=== PATIENT | male | born 1980 | race Caucasian/White ===

== ENCOUNTER 2019-04-18 22:21 | Emergency (ER) | payer OTHER ==
[~2019-04-18] VITALS: Ht 177.8 cm; Wt 90.9 kg
[~2019-04-18 22:21] MED LIST: CYCL-1 PO; NO MEDICATIONS
[2019-04-18 22:28] VITALS: BP 131/85
[2019-04-18] MEDS ORDERED: gentamicin 0.1% topical ointment 15gm TP ONE (23:30)
[2019-04-18] MEDS ORDERED: LIDOcaine 4% (40 mg/ml) topical solution 50ml MM ONE (23:30)
[2019-04-18] MEDS ORDERED: gentamicin 0.1% topical ointment 15gm TP SCH (23:30)
[2019-04-18] MEDS ORDERED: LIDOcaine 40mg/ml topical solution MM ONE (23:30)
== END 2019-04-19 00:38 | disposition home or self-care (01) ==
LOC: ER 22:22
DX: T81.31XA Disruption of external operation (surgical) wound, not elsewhere classified, initial encounter (principal); Z87.891 Personal history of nicotine dependence; Z98.890 Other specified postprocedural states; Z79.899 Other long term (current) drug therapy; Y83.8 Other surgical procedures as the cause of abnormal reaction of the patient, or of later complication, without mention of misadventure at the time of the procedure; Y92.89 Other specified places as the place of occurrence of the external cause
CPT/HCPCS: 99283; J2001

== ENCOUNTER 2019-12-01 13:37 | Emergency (ER) | payer OTHER ==
[~2019-12-01] VITALS: Ht 177.8 cm; Wt 92.7 kg
[2019-12-01 14:13] VITALS: BP 126/94
[2019-12-01] MEDS ORDERED: ketorolac trometh. 30mg/ml inj. IM ONE (14:15)
== END 2019-12-01 15:32 | disposition home or self-care (01) ==
LOC: ER 13:37
DX: B34.9 Viral infection, unspecified (principal); R50.9 Fever, unspecified; R05 Cough; Z20.828 Contact with and (suspected) exposure to other viral communicable diseases; Z98.890 Other specified postprocedural states
CPT/HCPCS: 36415; 87081; 87635; 87880; 96372; 99283; J1885